=== PATIENT | male | born 1970 | race Caucasian/White ===

== ENCOUNTER 2018-10-16 17:18 | Emergency (ER) | payer OTHER ==
[2018-10-16] MEDS ORDERED: ZOFRAN IM ONE (18:06)
[2018-10-16] MEDS ORDERED: MORPHINE IM ONE (18:06)
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
[2018-10-17 00:09] VITALS: BP 112/87
== END 2018-10-16 23:50 | disposition home or self-care (01) ==
LOC: ED 17:18
DX: S16.1XXA Strain of muscle, fascia and tendon at neck level, initial encounter (principal); S32.020A Wedge compression fracture of second lumbar vertebra, initial encounter for closed fracture; V49.49XA Driver injured in collision with other motor vehicles in traffic accident, initial encounter; Y93.89 Activity, other specified; Y92.410 Unspecified street and highway as the place of occurrence of the external cause; Y99.8 Other external cause status
CPT/HCPCS: 72100; 72125; 96372; 99284; J2270; J2405